=== PATIENT | female | born 1965 | race Caucasian/White ===

== ENCOUNTER 2017-05-19 19:50 | Emergency (ER) | payer OTHER ==
[2017-05-19 20:00] VITALS: BP 102/66
--- NOTE | 2017-05-19 21:45 | RAD ---
Indication: RIGHT ischial ramus pain post fall. Comparison: September 01, 2016 radiographs. Technique: 3 views of the pelvis obtained. Report: Negative for pelvic fracture or joint diastases. Unremarkable soft tissue contours. IMPRESSION: No radiographic evidence for pelvic fracture or joint diastases.
--- NOTE | 2017-05-19 21:48 | RAD ---
Indication: Lateral malleolus pain and swelling post fall. Comparison: No relevant prior exams available on the [facility] for comparison. Technique: AP, mortise, and lateral views LEFT ankle. REPORT AND IMPRESSION: Normal articular alignment. Negative for fracture or osteochondral lesion. Small plantar fascia origin bone spur. No significant soft tissue contour abnormality.
--- NOTE | 2017-05-19 22:08 | UC ---
Harry Salas Alok, scribed for Marco Altman MD on 05/19/17 at 2045 . Lower Extremity/Ankle HPI - HPI Summary HPI Summary: 52F presents to the [facility] with left ankle and buttocks pain following fall. Pt was reportedly at the gym when her left foot got caught between gym mats causing her to twist her left ankle and fall on her buttocks. Pt notes tinnitus and diaphoresis as well as lightheadedness and SOB after injuring herself which have subsided since. Pt denies head trauma or LOC. PMHx includes h/o lightheadedness following trauma. Pt takes meloxicam for chronic knee pain. - History of Current Complaint Chief Complaint: UCGeneralIllness Stated Complaint: ANKLE,BUTT INJURIES FROM FALL Time Seen by Provider: 05/19/17 20:35 Hx Obtained From: Patient Hx Last Menstrual Period: 05/16/17 Onset/Duration: Lasting Hours, Still Present Severity Initially: Moderate Severity Currently: Moderate Pain Intensity: 5 Pain Scale Used: 0-10 Numeric Aggravating Factor(s): Nothing Alleviating Factor(s): Nothing - Allergies/Home Medications Allergies/Adverse Reactions: Allergies Allergy/AdvReac Type Severity Reaction Status Date / Time Epinephrine Allergy MAKES HER Verified 11/30/15 09:50 SHAKE ENVIRONMENTAL Allergy INDUCES Uncoded 11/30/15 09:50 ASTHMA PMH/Surg Hx/FS Hx/Imm Hx - Surgical History Surgical History: Yes Surgery Procedure, Year, and Place: MYRINGOTOMY WITH BILATERAL TUBES IN EARS A CHILD, [facility]. ORAL EXTRACTION WITH ANESTHESIA A CHILD, OFFICE. ORAL EXTRACTION WITH ANESTHESIA A TEENAGER, OFFICE appy. TONSILLECTOMY AT AGE 20 , [facility] - Family History Known Family History: Positive: Other - Hyperlipidemia Negative: Hypertension, Diabetes - Social History Occupation: Employed Full-time Lives: With Family Alcohol Use: Weekly Alcohol Amount: 1-2 TIMES A WEEK Substance Use Type: None Smoking Status (MU): Never Smoked Tobacco Review of Systems Constitutional: Other - diaphoresis ENT: Other - tinnitus Respiratory: Shortness Of Breath Musculoskeletal: Other: - left ankle pain, buttocks pain Neurological: Other - lightheadedness All Other Systems Reviewed And Are Negative: Yes Physical Exam Triage Information Reviewed: Yes Appearance: Well-Appearing, No Pain Distress Vital Signs: Initial Vital Signs Temp 98 F 05/19/17 19:55 Pulse 78 05/19/17 19:55 Resp 18 05/19/17 19:55 BP 102/66 05/19/17 19:55 Pulse Ox 100 05/19/17 19:55 Vital Signs Reviewed: Yes Eyes: Positive: Other: - EOMI, NIRAV ENT: Positive: Normal ENT inspection Neck: Positive: Supple, Nontender Respiratory: Positive: Lungs clear, Normal breath sounds Cardiovascular: Positive: RRR Abdomen Description: Positive: Nontender, Soft Bowel Sounds: Positive: Present Musculoskeletal: Positive: Other: - Left ankle distal to the lateral malleolus tender. No back tenderness to palpation. Patient indicates tenderness at right ischial ramus. Neurological Exam: Normal Neurological: Positive: Alert, Other: - Sensory/Motor intact Psychological: Positive: Other: - affect/mood appropriate Skin: Positive: Other - warm, dry, skin color reflects adequate perfusion. Diagnostics - Radiology Pelvis XRAY Xray Interpretation: Positive (See Comments) - IMPRESSION: No radiographic evidence for pelvic fracture or joint diastases. Radiology Interpretation Completed By: Radiologist Ankle XRAY Xray Interpretation: Positive (See Comments) - IMPRESSION: Normal articular alignment. Negative for fracture or osteochondral lesion. Small plantar fascia origin bone spur. No significant soft tissue contour abnormality. Radiology Interpretation Completed By: Radiologist Lower Extremity Course/Dx - Course Course Of Treatment: Patient medications reviewed this visit. DISCUSSED FURTHER WORK UP FOR NEAR SYNCOPE AFTER FALL. THESE EPISODES MOST LIKELY VASOVAGAL NEAR SYNCOPE SECONDARY TO PAIN. PATIENT/ DECLINE FURTHER EVALUATION AT THIS TIME. WILL F/U WITH PMD; GO TO ED IF WORSE. - Differential Dx/Diagnosis Provider Diagnoses: LEFT ANKLE SPRAIN. RT ISCHIAL RAMUS CONTUSION. NEAR SYNCOPE. Discharge - Discharge Plan Condition: Stable Disposition: HOME Patient Education Materials: Ankle Sprain (ED), Contusion in Adults (ED), Near Syncope (ED) Referrals: Devin Friedman MD [Primary Care Provider] - Additional Instructions: FOLLOW UP WITH YOUR DOCTOR. GET RECHECKED FOR ANY WORSENING OF YOUR CONDITION OR QUESTIONS OR CONCERNS. The documentation as recorded by the Harry arana Alok accurately reflects the service I personally performed and the decisions made by me, Marco Altman MD.
== END 2017-05-19 22:19 | disposition home or self-care (01) ==
LOC: UCEAST 19:50
DX: S93.402A Sprain of unspecified ligament of left ankle, initial encounter (principal); S30.0XXA Contusion of lower back and pelvis, initial encounter; R55 Syncope and collapse; M25.569 Pain in unspecified knee; G89.29 Other chronic pain; W18.39XA Other fall on same level, initial encounter; Y92.838 Other recreation area as the place of occurrence of the external cause
CPT/HCPCS: 72190; 99212; G0463

== ENCOUNTER 2018-11-23 23:55 | Emergency (ER) | payer OTHER ==
--- NOTE | 2018-11-24 02:10 | ED ---
HPI Chest Pain - HPI Summary HPI Summary: This patient is a 53 year old F presenting to ED with a chief complaint of CP since a couple hours after waking up this morning. She could not wake up this morning even though she had a good nights sleep last night. The CC is described as worsened when she went to bed. Today, she walked 1.5 mi to work this morning and got to work around 0945. About an hour after getting to work, she felt the CP. She also was walking around to different buildings at [place] for work. She reports she had a bit of stress today. She got off work at about 1700. She then goes to the gym and did some lifting and some burpees. She was a bit out of breath after working out but it wasnt anything too bad. She says that the pain feels muscley. The patient rates the pain 2/10 in severity. Symptoms aggravated by thinking about it. Symptoms alleviated a bit spontaneously about 10 minutes ago and relaxing. Patient reports recent sinus infection and was on abx for it a couple weeks ago. Patient denies SOB, N/V, and swelling in LE. Patient is not a smoker. The patient reports she went to the dentist for a protrusion last week, and found she had two infected root canals. PMHx of asthma. - History of Current Complaint Chief Complaint: EDChestPainROMI Time Seen by Provider: 11/24/18 01:53 Hx Obtained From: Patient Hx Last Menstrual Period: 05/16/17 Onset/Duration: Started Hours Ago Timing: Constant, Lasting Hours Initial Severity: Mild Current Severity: Mild Pain Intensity: 2 Pain Scale Used: 0-10 Numeric Chest Pain Radiates: No Character: Other: - pain feels muscley" Aggravating Factor(s): Other: - thinking about it Alleviating Factor(s): Rest, Spontaneous Resolution Associated Signs and Symptoms: Negative: Shortness of Breath, Swelling, Nausea, Vomiting - Allergy/Home Medications Allergies/Adverse Reactions: Allergies Allergy/AdvReac Type Severity Reaction Status Date / Time MS Epinephrine [Epinephrine] Allergy MAKES HER Verified 11/30/15 09:50 SHAKE ENVIRONMENTAL Allergy INDUCES Uncoded 11/30/15 09:50 ASTHMA PMH/Surg Hx/FS Hx/Imm Hx Respiratory History: Reports: Hx Asthma - ENVIRONMENTAL INDUCED, UNDER CONTROL WITH MEDS History: Reports: Other Problems/Disorders - HX OF UTI YEARS AGO, NO PROBLEMS NOW. ovarian cysts Musculoskeletal History: Reports: Hx Arthritis - OSTEOARTHRITIS, Hx Bursitis - LEFT HIP, Other Musculoskeletal History - LEFT SHOULDER JOINT PAIN Sensory History: Reports: Hx Contacts or Glasses - READING GLASSES Denies: Hx Hearing Aid Opthamlomology History: Reports: Hx Contacts or Glasses - READING GLASSES Neurological History: Reports: Hx Migraine - COMPLICATED MIGRAINES, 3-5 TIMES A YEAR, AFFECTS VISION, MUMBLED WORDS - Cancer History Hx Chemotherapy: No Hx Radiation Therapy: No - Surgical History Surgery Procedure, Year, and Place: MYRINGOTOMY WITH BILATERAL TUBES IN EARS A CHILD, [facility]. ORAL EXTRACTION WITH ANESTHESIA A CHILD, OFFICE. ORAL EXTRACTION WITH ANESTHESIA A TEENAGER, OFFICE appy. TONSILLECTOMY AT AGE 20 , [facility] Hx Anesthesia Reactions: No Infectious Disease History: No Infectious Disease History: Denies: Hx Clostridium Difficile, Hx Hepatitis, Hx Human Immunodeficiency Virus (HIV), Hx of Known/Suspected MRSA, Hx Shingles, Hx Tuberculosis, Hx Known/ Suspected VRE, Hx Known/Suspected VRSA, History Other Infectious Disease, Traveled Outside the in Last 30 Days - Family History Known Family History: Positive: Other - Hyperlipidemia Negative: Hypertension, Diabetes - Social History Alcohol Use: Weekly Alcohol Amount: 1-2 TIMES A WEEK Hx Substance Use: No Substance Use Type: Reports: None Hx Tobacco Use: No Smoking Status (MU): Never Smoked Tobacco Review of Systems Positive: Chest Pain Negative: Shortness Of Breath Negative: Vomiting, Nausea Positive: Other - denies swelling in LE All Other Systems Reviewed And Are Negative: Yes Physical Exam - Summary Physical Exam Summary: Appearance: Well-appearing, Well-nourished, lying in bed comfortably Skin: Warm, dry, no obvious rash Eyes: sclera anicteric, no conjunctival pallor ENT: mucous membranes moist, pharynx appears normal Neck: Supple, nontender Respiratory: Clear to auscultation, no signs of respiratory distress Cardiovascular: Normal S1, S2. No murmurs. Normal distal pulses in tibial and radial bilaterally. Abdomen: Soft, nontender, normal active bowel sounds present Musculoskeletal: Normal, Strength/ROM Intact Neurological: A&Ox3, awake and alert, mentation is normal, speech is fluent and appropriate Psychiatric: affect is normal, does not appear anxious or depressed Triage Information Reviewed: Yes Vital Signs On Initial Exam: Initial Vitals Temp Pulse Resp BP Pulse Ox 97.8 F 66 16 127/88 98 11/23/18 23:57 11/23/18 23:57 11/23/18 23:57 11/23/18 23:57 11/23/18 23:57 Vital Signs Reviewed: Yes Diagnostics - Vital Signs Vital Signs Temp Pulse Resp BP Pulse Ox 11/23/18 23:57 97.8 F 66 16 127/88 98 - Laboratory Result Diagrams: 11/24/18 02:48 11/24/18 02:48 Lab Statement: Any lab studies that have been ordered have been reviewed, and results considered in the medical decision making process. - EKG 0126 Cardiac Rate: NL - 59 BPM EKG Rhythm: Sinus Rhythm Summary of EKG Findings: P waves, QRS complex, and T waves are within normal limits, T waves and intervals are normal, no ischemic changes. This is a normal EKG. Re-Evaluation - Re-Evaluation First Eval Re-Evaluation Time: 03:31 Comment: Discussed results and plan for discharge. Chest Pain Course/Dx - Course Assessment/Plan: This patient is a 53 year old F presenting to ED with a chief complaint of CP since a couple hours after waking up this morning. EKG reveals a normal EKG. This patient will be discharged with a dx of noncardiac CP. Patient understands and is agreeable with this plan. - Chest Pain Differential Diagnosis/HQI/PQRI: Other: - noncardiac CP - Diagnoses Provider Diagnoses: Non-cardiac chest pain Discharge - Sign-Out/Discharge Documenting (check all that apply): Patient Departure - discharge Patient Received Moderate/Deep Sedation with Procedure: No - Discharge Plan Condition: Good Disposition: HOME Patient Education Materials: Noncardiac Chest Pain (ED) Referrals: Devin Friedman MD [Primary Care Provider] - 1 Week - Billing Disposition and Condition Condition: GOOD Disposition: Home - Attestation Statements Document Initiated by Ehe: Yes Documenting Scribe: Red Williamson Provider For Whom Roseanna is Documenting (Include Credential): Miky Berg MD Scribe Attestation: Red Salas, scribed for Miky Berg MD on 11/25/18 at 2324. Scribe Documentation Reviewed: Yes Provider Attestation: The documentation as recorded by the Red arana accurately reflects the service I personally performed and the decisions made by me, Miky Berg MD Status of Scribe Document: Viewed
[2018-11-24 02:54] LABS: ABS Basophils 0.1 10^3/ul (0-0.2); ABS Eosinophils 0.4 10^3/ul (0-0.6); ABS Lymphocytes 2.6 10^3/ul (1.0-4.8); ABS Monocytes 0.7 10^3/ul (0-0.8); ABS Neutrophils 3.9 10^3/ul (1.5-7.7); ABS Nucleated RBC 0 10^3/ul; Eosinophil % 5.3 %; Hematocrit 36 % (35-47); Hemoglobin 12.1 g/dl (12.0-16.0); Mean Corpuscular HGB Conc 33 g/dl (31-36); Mean Corpuscular Hemoglobin 29 pg (27-31); Mean Corpuscular Volume 88 fL (80-97); Mean Platelet Volume 8.9 fL (7.4-10.4); Nucleated Red Blood Cells % 0.1; Platelet Count 241 10^3/ul (150-450); Red Blood Count 4.14 10^6/ul (4.00-5.40); Red Cell Distribution Width 14 % (10.5-15); White Blood Count 7.8 10^3/ul (3.5-10.8)
[2018-11-24 03:14] LABS: Albumin/Globulin Ratio 1.7 (1-3); BUN/Creatinine Ratio 21.5 (8-20); Calcium 9.1 mg/dL (8.6-10.3); EGFR African American 116.3 (>60); EGFR Non-African American 96.1 (>60); Globulin 2.4 g/dL (2-4); Potassium 3.8 mmol/L (3.5-5.0); Total Bilirubin 0.3 mg/dL (0.2-1.0); Total Protein 6.4 g/dL (6.4-8.9)
[2018-11-24 03:44] VITALS: BP 111/73
== END 2018-11-24 03:43 | disposition home or self-care (01) ==
LOC: ED 23:55
DX: R07.89 Other chest pain (principal); R00.1 Bradycardia, unspecified; J45.909 Unspecified asthma, uncomplicated; Z88.8 Allergy status to other drugs, medicaments and biological substances
CPT/HCPCS: 36415; 80053; 84484; 85025; 93005; 99282

== ENCOUNTER 2021-01-25 07:32 | Observation (INO) ==
[~2021-01-25 07:32] MED LIST: Buffered Lidocaine 1% SYRIN 1 ml INTRADERM ONE; Famotidine IV 10 MG/ML 2 ml VIAL (20 mg) IV ONE
[2021-01-25] MEDS ORDERED: Famotidine IV 10 MG/ML 2 ml VIAL (20 mg) ONE (07:43)
[2021-01-25] MEDS ORDERED: ceFAZolin 2 GM PREMIX 2 GM/50 ML BAG ONE (07:43)
[2021-01-25] MEDS ORDERED: fentaNYL 100 mcg/2 ml 50 MCG/ML VIAL ONE (08:05)
[2021-01-25] MEDS ORDERED: Midazolam 2 mg/2 ml VIAL 1 mg/ml 2 ml VIAL (2 mg) ONE (08:05)
[2021-01-25] MEDS ORDERED: Ropivacaine 5 MG/ML 20 ML VIAL 0.5% (100 MG) ONE ×2 (08:12→08:39)
[2021-01-25] MEDS ORDERED: Lidocaine 2% PF 5 ML VIAL ONE (08:15)
[2021-01-25] MEDS ORDERED: Dexamethasone IV 4 MG/ML VIAL 1 ml VIAL ONE (08:15)
[2021-01-25] MEDS ORDERED: Ondansetron 4 mg VIAL 2 MG/ML 2 ml VIAL ONE (08:15)
[2021-01-25] MEDS ORDERED: Phenylephrine IV 10 MG/ML 1 ml VIAL ONE (08:19)
[2021-01-25] MEDS: Lactated Ringers 1000 ml BAG 1,000 ML IV SCH ×3 (08:24→14:53)
[2021-01-25] MEDS ORDERED: Propofol 10 mg/ml 100 ML BTL 100 ML ONE (09:33)
[2021-01-25] MEDS ORDERED: Midazolam 5 mg/5 ml VIAL 1 mg/ml 5 ml VIAL (5 mg) ONE (10:19)
[2021-01-25] MEDS ORDERED: Ketamine HCL 50 mg/ml 10 ml VIAL (500 MG) ONE (10:37)
[2021-01-25] MEDS ORDERED: Glycopyrrolate IV 0.2 MG/ML 1 ML VIAL ONE (11:26)
[2021-01-25] MEDS ORDERED: Morphine 2 MG/ML SYRINGE IV PRN (13:04)
[2021-01-25] MEDS ORDERED: Ondansetron ODT 4 mg TAB 4 MG TAB PO PRN (13:04)
[2021-01-25] MEDS ORDERED: Ondansetron 4 mg VIAL 2 MG/ML 2 ml VIAL IV PRN ×2 (13:04→13:05)
[2021-01-25] MEDS ORDERED: diPHENhydraMINE IV 50 MG/ML 1 ml VIAL (BENADRYL) IV PRN (13:04)
[2021-01-25] MEDS ORDERED: diPHENhydraMINE 25 mg TAB PO PRN (13:04)
[2021-01-25] MEDS ORDERED: Magnesium Hydroxide LIQ 30 ML UDC PO PRN (13:04)
[2021-01-25] MEDS ORDERED: Levalbuterol 0.63MG/3ML NEB UNIT OF USE INH PRN (13:05)
[2021-01-25] MEDS ORDERED: DiMENhydriNATE IV 50 mg/ml 1 ml VIAL IV PUSH PRN (13:05)
[2021-01-25] MEDS ORDERED: fentaNYL 100 mcg/2 ml 50 MCG/ML VIAL IV PRN (13:05)
[2021-01-25] MEDS ORDERED: Naloxone 0.4 mg VIAL 0.4 mg/ml 1 ml VIAL IV PRN (13:05)
[2021-01-25] MEDS ORDERED: Albuterol HFA INHALER 8 gm MDI INH PRN (15:17)
[2021-01-25] MEDS: oxyCODONE/Acetamin 5/325 mg TAB PO PRN ×2 (19:14→23:50)
[2021-01-25] MEDS: ceFAZolin 1 GM ADVAN 1 GM in NS 0.9% 50 ML 50 ML IVPB SCH (19:14)
[2021-01-25] MEDS: Magnesium Hydroxide LIQ 30 ML UDC PO SCH (22:42)
[2021-01-26] MEDS: Lactated Ringers 1000 ml BAG 1,000 ML IV SCH (01:25)
[2021-01-26] MEDS: ceFAZolin 1 GM ADVAN 1 GM in NS 0.9% 50 ML 50 ML IVPB SCH ×2 (02:12→10:42)
[2021-01-26] MEDS: oxyCODONE/Acetamin 5/325 mg TAB PO PRN ×2 (05:53→10:45)
[2021-01-26 06:52] LABS: Hematocrit 30 % (35-47); Mean Platelet Volume 8.8 fL (7.4-10.4); Platelet Count 204 10^3/uL (150-450)
[2021-01-26 07:08] LABS: BUN/Creatinine Ratio 16.7 (8-20); Calcium 8.8 mg/dL (8.6-10.3); EGFR African American 102.1 (>60); EGFR Non-African American 84.4 (>60)
[2021-01-26] MEDS: Magnesium Hydroxide LIQ 30 ML UDC PO SCH (08:09)
[2021-01-26] MEDS ORDERED: Vitamin THERAPEUTIC TAB PO SCH (09:00)
[2021-01-26 11:26] VITALS: BP 102/57
== END 2021-01-26 13:30 | disposition home or self-care (01) ==
LOC: OR 07:32 → SSU 07:32
PROVIDERS: ADMIT Orthopaedic Surgery Adult Reconstructive Orthopaedic Surgery; ATTEND Orthopaedic Surgery Adult Reconstructive Orthopaedic Surgery